=== PATIENT | male | born 2000 | race Caucasian/White ===

== ENCOUNTER 2021-05-11 16:24 | Emergency (ER) | payer BC, SELFPAY ==
--- NOTE | 2021-05-11 16:29 | ECG_ITS ---
[facility] Test Date: 2021-05-11 Pat Name: Shlomo Beckham Department: Room: Gender: Male [employer]: : 2000 Requested By: James Klein Order Number: [id number] Antonio Luna MD: Jose Francisco Barron M.D. Measurements Intervals [place] Rate: 104 P: 86 TX: 114 QRS: 99 QRSD: 86 T: 79 QT: 328 QTc: 432 Interpretive Statements SINUS TACHYCARDIA WITH SHORT TX INTERVAL POSSIBLE LEFT ATRIAL ENLARGEMENT [-0.1mV P-WAVE IN V1/V2] INDETERMINATE AXIS POSSIBLE RIGHT VENTRICULAR CONDUCTION DELAY [RSR (QR) IN V1/V2] MODERATE ST DEPRESSION [0.05+ mV ST DEPRESSION] No previous ECG available for comparison Electronically Signed On 05-11-2021 17:04:25 [employer] TI[employer] RECAPPER by Jose Francisco Barron M.D. [email or web address]
--- NOTE | 2021-05-11 16:29 | XR_ITS ---
WS: [id number] XR chest 1V portable [id number] REASON FOR EXAM: chest pain FINDINGS: The heart and the mediastinum are within normal limits. Calcified granulomatous disease in both hemithoraces. No acute pulmonary parenchymal or pleural abnormality is identified. Bony thorax is intact. XR/XR chest 1V portable [id number] IMPRESSION: No acute chest abnormality.
[2021-05-11 16:32] VITALS: PULSE 142; RESP 28; TEMP 36.9; O2SAT 98
== END 2021-05-11 18:32 | disposition left against medical advice (07) ==
PROVIDERS: Emergency Provider Family Medicine
DX: Z53.21 Procedure and treatment not carried out due to patient leaving prior to being seen by health care provider (principal)
CPT/HCPCS: 71045; 93005